=== PATIENT | male | born 1970 | race Caucasian/White ===

== ENCOUNTER → 2017-03-22 | Outpatient (CLI) | payer BC ==
--- NOTE | 2017-03-22 18:19 | DIAGNOSTIC IMAGING REPORT ---
CHEST 2 VIEWS ROUTINE HISTORY: 46 years-old Male COUGH acute cough 1 month. Initial exam. COMPARISON: Chest radiograph 05/27/2011 TECHNIQUE: Frontal and lateral views of the chest FINDINGS: Cardiomediastinal and hilar silhouettes are within normal limits. There is no pneumothorax, pleural effusion, focal airspace consolidation or overt pulmonary edema. The lungs are hyperinflated symmetrically. The bones are grossly intact. IMPRESSION: Hyperinflation without acute cardiopulmonary process. The above report was generated using voice recognition software. It may contain grammatical, syntax or spelling errors. Electronically signed by: Johnny Donald M.D. 03/22/2017 6:18 PM Dictated Date/Time: 03/22/2017 6:17 PM
== END | disposition home or self-care (01) ==
LOC: C.RAD 17:38
PROVIDERS: ATTEND Student in an Organized Health Care Education/Training Program
DX: R05 Cough (principal)